=== PATIENT | female | born 1985 | race Asian ===

== ENCOUNTER 2018-01-30 23:50 | Emergency (ER) | payer SELFPAY ==
[~2018-01-30] VITALS: Ht 170.2 cm; Wt 49.9 kg
[2018-01-30 23:50] VITALS: BP_SYST 115
[2018-01-31] MEDS ORDERED: KETOROLAC TROMETHAMINE 15 MG VIAL IM ONE (00:15)
[2018-01-31 01:04] LABS: BILIRUBIN,URINE NEGATIVE (NEGATIVE); BLOOD, URINE NEGATIVE (NEGATIVE); CLARITY/URINE SL HAZY (CLEAR); COLOR,URINE YELLOW (YELLOW); GLUCOSE,URINE NEGATIVE (NEGATIVE); KETONES,URINE NEGATIVE (NEGATIVE); LEUKOCYTE ESTERASE ,URINE NEGATIVE (NEGATIVE); NITRITE, URINE NEGATIVE (NEGATIVE); PH,URINE 5.5 (5.0-8.0); PROTEIN URINE TRACE (NEGATIVE); UROBILINOGEN,URINE 0.2 (0.2-1.0)
[2018-01-31 01:13] LABS: BENZODIAZEPINE, URINE POSITIVE (NEG <=150); OPIATE, URINE POSITIVE (NEG <=100); URINE AMPHETAMINE POSITIVE (NEG <=500)
[2018-01-31 01:14] LABS: BARBITURATE, URINE NEGATIVE (NEG <=200); CANNABINOID, URINE NEGATIVE (NEG <=50); COCAINE, URINE NEGATIVE (NEG <=150); METHAMPHETAMINES SCREEN,URINE NEGATIVE (NEG <=500); PHENCYCLIDINE SCREEN,URINE NEGATIVE (NEG <=25); UR TRICYCLIC ANTIDEPRESSANTS NEGATIVE (NEG <=300); URINE METHADONE NEGATIVE (NEG <=200); URINE OXYCODONE SCREEN NEGATIVE (NEG <=100); URINE PROPOXYPHENE SCREEN NEGATIVE (NEG <=300)
[2018-01-31 01:48] VITALS: BP_SYST 110
== END 2018-01-31 01:48 ==
LOC: SED 23:50
DX: R07.81 Pleurodynia (principal); F11.90 Opioid use, unspecified, uncomplicated; F13.90 Sedative, hypnotic, or anxiolytic use, unspecified, uncomplicated; F15.90 Other stimulant use, unspecified, uncomplicated; F32.9 Major depressive disorder, single episode, unspecified; F41.9 Anxiety disorder, unspecified; Z88.1 Allergy status to other antibiotic agents
CPT/HCPCS: 71110; 80307; 81003; 81025; 96372; 99285; J1885

== ENCOUNTER 2018-03-19 00:21 | Emergency (ER) | payer SELFPAY ==
[~2018-03-19] VITALS: Ht 170.2 cm; Wt 47.6 kg
[2018-03-19 00:42] VITALS: BP_SYST 137
== END 2018-03-19 01:22 | disposition left against medical advice (07) ==
LOC: SED 00:21
DX: R51 Headache (principal); J34.89 Other specified disorders of nose and nasal sinuses; Z53.21 Procedure and treatment not carried out due to patient leaving prior to being seen by health care provider

== ENCOUNTER 2018-12-19 21:52 | Emergency (ER) | payer SELFPAY ==
[~2018-12-19] VITALS: Ht 170.2 cm; Wt 49.9 kg
[2018-12-19 21:55] VITALS: BP_SYST 87
[2018-12-19] MEDS ORDERED: NACL 0.9% 1,000 ML IV ONE (22:30)
[2018-12-20 00:07] VITALS: BP_SYST 116
== END 2018-12-20 00:07 | disposition home or self-care (01) ==
LOC: SED 21:52
DX: T40.1X1A Poisoning by heroin, accidental (unintentional), initial encounter (principal); F32.9 Major depressive disorder, single episode, unspecified; F41.9 Anxiety disorder, unspecified; Z88.1 Allergy status to other antibiotic agents; Y92.89 Other specified places as the place of occurrence of the external cause
CPT/HCPCS: 99283; J7030